=== PATIENT | male | born 1975 | race Caucasian/White ===

== ENCOUNTER 2023-02-07 12:54 | Emergency (ER) | payer OTHER, SELFPAY ==
[2023-02-07 13:00] VITALS: BP 122/82; PULSE 91; RESP 20; TEMP 37.2; O2SAT 97; BMI 25.4
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
[2023-02-07 14:38] VITALS: BP 122/82; PULSE 91; RESP 20; TEMP 37.2; O2SAT 97
== END 2023-02-07 14:50 | disposition home or self-care (01) ==
PROVIDERS: Emergency Provider Nurse Practitioner; PCP Family Medicine
DX: S93.402A Sprain of unspecified ligament of left ankle, initial encounter (principal); M54.2 Cervicalgia; M62.838 Other muscle spasm; V29.99XA Rider (driver) (passenger) of other motorcycle injured in unspecified traffic accident, initial encounter
CPT/HCPCS: 72040; 73610; 73630; 99204; 99212; G0463